=== PATIENT | male | born 1995 | race Caucasian/White ===

== ENCOUNTER 2021-07-21 17:22 | Emergency (ER) | payer OTHER ==
[~2021-07-21] VITALS: Ht 172.7 cm; Wt 113.6 kg
[2021-07-21 17:23] VITALS: BP 134/64
[2021-07-21 18:51] LABS: RSV AMPLIFICATION NEGATIVE (NEGATIVE)
[2021-07-21] MEDS ORDERED: ACETAMINOPHEN 325 MG TAB PO ONE (19:20)
[2021-07-21] MEDS ORDERED: ONDANSETRON 4 MG TAB PO ONE (19:20)
[2021-07-21] MEDS ORDERED: MUCI60TA7 PO (20:15)
== END 2021-07-21 20:18 | disposition home or self-care (01) ==
LOC: M ED 17:22
DX: J00 Acute nasopharyngitis [common cold] (principal); R09.89 Other specified symptoms and signs involving the circulatory and respiratory systems